=== PATIENT | female | born 1980 | race Caucasian/White ===

== ENCOUNTER 2020-07-12 17:11 | Emergency (ER) | payer SELFPAY ==
[~2020-07-12] VITALS: Ht 157.5 cm; Wt 59.1 kg
[2020-07-12] MEDS ORDERED: LIDOCAINE 5% TRANSDERMAL PATCH TD ONE (17:45)
[2020-07-12] MEDS ORDERED: IBUPROFEN 600 MG TABLET PO ONE (17:45)
[2020-07-12 18:25] VITALS: BP 122/67
== END 2020-07-12 19:42 | disposition home or self-care (01) ==
LOC: EMS 17:11
DX: M54.5 Low back pain (principal)
CPT/HCPCS: 72100; 99283